=== PATIENT | female | born 2000 | race Caucasian/White ===

== ENCOUNTER 2019-08-20 23:40 | Emergency (ER) | payer BC ==
--- NOTE | 2019-08-20 23:47 | ED Physician Documentation ---
PD HPI CHEST PAIN - Stated complaint Stated Complaint: IRREGULAR HR - History obtained from History obtained from: Patient - History of Present Illness Timing - onset: How many hours ago (few) Timing - onset during: Rest (was sitting on couch and started feeling occasional palpitations that increased in frequency. Not ligktheaded. No chest pain per se, but just the uncomfortable feeling of the surges/thumps in the chest.), Light activity Timing - details: Abrupt onset, Intermittant (feeling several per minute for past few hours.) Quality: Throbbing. No: Pressure, Tightness Associated symptoms: Palpitations. No: Shortness of air, Diaphoresis, Feeling faint / dizzy Similar symptoms before: No diagnosis (has felt these at times the past year or so. Had been to PMD and got ECG but no other testing. Has had the feeling of it with running/sports at times in the past. Has started running regularly the past week or so, and feels okay during that.), Other (remote history of single fainting episode few years back with underhydration and tired.) Review of Systems Constitutional: denies: Fever, Chills Nose: denies: Rhinorrhea / runny nose, Congestion Throat: denies: Sore throat Cardiac: reports: Palpitations Respiratory: denies: Cough GI: denies: Abdominal Pain, Nausea, Vomiting, Diarrhea Neurologic: denies: Altered mental status, Headache, Head injury Endocrine: denies: Weight loss, Weight gain, Easy bruising / bleeding PD PAST MEDICAL HISTORY - Past Medical History Cardiovascular: None Respiratory: None Neuro: None Endocrine/Autoimmune: None - Past Surgical History Past Surgical History: No - Present Medications Home Medications: Ambulatory Orders Medication Instructions Recorded Confirmed Bcp 08/20/19 Potassium Chloride 10 meq PO DAILY #20 tablet.er 08/21/19 - Allergies Allergies/Adverse Reactions: Allergies Allergy/AdvReac Type Severity Reaction Status Date / Time amoxicillin Allergy Rash Verified 08/20/19 23:50 azithromycin [From Zithromax] Allergy Rash Verified 08/20/19 23:50 cefuroxime [From Ceftin] Allergy Rash Verified 08/20/19 23:50 - Living Situation Living Situation: reports: With family Living Arrangement: reports: At home - Social History Does the pt smoke?: No Does the pt drink ETOH?: No Does the pt have substance abuse?: No - Family History Family history: reports: CAD PD ED PE NORMAL - Vitals Vital signs reviewed: Yes - General General: Alert and oriented X 3, No acute distress, Well developed/nourished - HEENT HEENT: Moist mucous membranes, Pharynx benign - Neck Neck: Supple, no meningeal sign, No adenopathy, Thyroid normal - Cardiac Cardiac: RRR, No murmur - Respiratory Respiratory: Clear bilaterally - Abdomen Abdomen: Soft, Non tender - Back Back: No CVA TTP - Derm Derm: Normal color, Warm and dry, No rash - Extremities Extremities: No tenderness to palpate, Normal ROM s pain, No edema, No calf tenderness / cord Results - Vitals Vitals: Vital Signs - 24 hr 08/20/19 08/21/19 08/21/19 23:47 00:13 00:15 Temperature 37.2 C Heart Rate 76 71 83 Respiratory 18 12 17 Rate Blood Pressure 148/86 H 124/70 O2 Saturation 99 100 100 08/21/19 08/21/19 01:39 02:31 Temperature 36.7 C Heart Rate 79 73 Respiratory 12 17 Rate Blood Pressure 116/72 119/70 O2 Saturation 98 98 Oxygen O2 Source Room air - EKG (time done) 23:55 Rate: Rate (enter#) (85) Rhythm: NSR [place]: Normal Intervals: Normal DE QRS: Normal Ischemia: Normal ST segments. No: ST elevation c/w ischemia, ST depression - Labs Labs: Laboratory Tests 08/21/19 08/21/19 08/21/19 00:30 00:30 00:30 WBC 6.8 RBC 4.26 Hgb 12.7 Hct 38.7 MCV 90.8 MCH 29.8 MCHC 32.8 RDW 12.7 Plt Count 263 MPV 9.9 Neut # (Auto) 3.6 Lymph # (Auto) 2.5 [place] # (Auto) 0.6 Eos # (Auto) 0.1 Baso # (Auto) 0.0 Absolute Nucleated RBC 0.00 Nucleated RBC % 0.0 Sodium 138 Potassium 3.3 L Chloride 106 Carbon Dioxide 23 Anion Gap 9.0 BUN 19 Creatinine 0.9 Estimated GFR (MDRD) 81 L Glucose 103 H Calcium 9.1 Magnesium 1.9 Total Bilirubin 0.5 AST 20 ALT 15 Alkaline Phosphatase 49 Troponin I High Sens Total Protein 6.9 Albumin 3.9 Globulin 3.0 Albumin/Globulin Ratio 1.3 Lipase 34 TSH 6.07 H Free T4 Free T3 pg/mL Prolactin 08/21/19 08/21/19 08/21/19 00:30 00:30 00:30 WBC RBC Hgb Hct MCV MCH MCHC RDW Plt Count MPV Neut # (Auto) Lymph # (Auto) [place] # (Auto) Eos # (Auto) Baso # (Auto) Absolute Nucleated RBC Nucleated RBC % Sodium Potassium Chloride Carbon Dioxide Anion Gap BUN Creatinine Estimated GFR (MDRD) Glucose Calcium Magnesium Total Bilirubin AST ALT Alkaline Phosphatase Troponin I High Sens < 2.3 L Total Protein Albumin Globulin Albumin/Globulin Ratio Lipase TSH Free T4 0.92 Free T3 pg/mL 8.07 H Prolactin 33.19 PD MEDICAL DECISION MAKING - ED course Complexity details: reviewed results (K low at 3.3. Has elevated TSH, and added T3/T4 with interestingly high T4. Consider central hyperthyroid. Can add tests at suggestion of [employer].), considered differential (feeling palpitations that correlate with PACs here in ER. Can check labs/lytes. Of some concern is that she has felt these at times with exercise and not just at rest. No exertional CP nor dyspnea. Had a single remote syncope couple years ago. No near syncope recently. Still could consider ECHO/Arce), d/w patient Departure - Departure Disposition: 01 Home, Self Care Clinical Impression: Heart palpitations, PAC (premature atrial contraction), Hypokalemia Condition: Stable Record reviewed to determine appropriate education?: Yes Instructions: ED Potassium Deficiency, ED Palpitations Follow-Up: [facility] [Provider Group] [facility] [Provider Group] Ramon Garza MD [Provider Admit Priv/Credential] - Prescriptions: Potassium Chloride 10 meq PO DAILY #20 tablet.er Comments: Stay well-hydrated. Add a potassium supplement daily for 2 to 3 weeks. Avoid caffeinated beverages. Follow-up with primary care regarding further evaluation and also follow-up on thyroid test. Your thyroid screening test showed elevated TSH. I added some more blood tests that we will not get the results back tonight, to better evaluate that. You could consult with cardiology regarding any further heart testing such as an ultrasound of the heart (echocardiogram). I included the name of 1 of the fast food assistant restaurant manager from [employer] that does clinics here in [place]. There are others from that same group that come to this area so does not have to be that fast food assistant restaurant manager in particular. New Recheck if more consistent symptoms or associated with lightheadedness or chest pain or other concerns. Discharge Date/Time: 08/21/19 02:41
[2019-08-21 00:36] LABS: BASOPHILS % (AUTO) 0.4 %; EOSINOPHILS # (AUTO) 0.1 10^3/uL (0.0-0.7); EOSINOPHILS % (AUTO) 1.2 %; HGB - HEMOGLOBIN 12.7 g/dL (12.0-16.0); LYMPHOCYTES # (AUTO) 2.5 10^3/uL (1.5-3.5); LYMPHOCYTES % (AUTO) 37.1 %; MEAN CORPUSCULAR HEMOGLOBIN 29.8 pg (27.0-31.0); MEAN CORPUSCULAR HGB CONC 32.8 g/dL (32.0-36.0); MEAN CORPUSCULAR VOLUME 90.8 fL (81.0-99.0); MEAN PLATELET VOLUME 9.9 fL (7.9-10.8); MONOCYTES # (AUTO) 0.6 10^3/uL (0.0-1.0); MONOCYTES % (AUTO) 8.1 %; NEUTROPHILS # (AUTO) 3.6 10^3/uL (1.5-6.6); NEUTROPHILS % (AUTO) 52.9 %; PLT - PLATELET COUNT 263 10^3/uL (130-450); RED BLOOD COUNT 4.26 10^6/uL (4.20-5.40); RED CELL DISTRIBUTION WIDTH 12.7 % (12.0-15.0); WHITE BLOOD COUNT 6.8 x10^3/uL (4.8-10.8)
[2019-08-21 00:49] LABS: ALBUMIN 3.9 g/dL (3.2-5.5); ALBUMIN/GLOBULIN RATIO 1.3 (1.0-2.2); BILIRUBIN,TOTAL 0.5 mg/dL (0.2-1.0); CALCIUM 9.1 mg/dL (8.5-10.3); CREATININE 0.9 mg/dL (0.4-1.0); MAGNESIUM 1.9 mg/dL (1.7-2.8); TOTAL PROTEIN 6.9 g/dL (6.7-8.2)
[2019-08-21] MEDS ORDERED: POTASSIUM CHLORIDE 20 MEQ TABLET PO STA (01:29)
[2019-08-21 02:03] LABS: FREE T3 8.07 pg/mL (2.5-3.9)
[2019-08-21 02:05] LABS: FREE T4 (FREE THYROXINE) 0.92 ng/dL (0.58-1.64)
[2019-08-21 02:32] VITALS: BP 119/70
== END 2019-08-21 02:41 | disposition home or self-care (01) ==
LOC: ED 23:40
DX: I49.1 Atrial premature depolarization (principal); E87.6 Hypokalemia; R79.89 Other specified abnormal findings of blood chemistry; Z82.49 Family history of ischemic heart disease and other diseases of the circulatory system
CPT/HCPCS: 36415; 81599; 82024; 83690; 83735; 84146; 84439; 84481; 84484; 93005; 99283; 99284; A9270; 80053; 84443; 85025